=== PATIENT | male | born 1940 | race African-American/Black ===

== ENCOUNTER 2019-01-27 11:17 | Emergency (ER) | payer MEDICARE, OTHER ==
[~2019-01-27] VITALS: Ht 182.9 cm; Wt 74.8 kg
--- OUTSIDE RECORDS SUMMARY | 2019-01-27 11:19 | XMS REPORT | Clinical Summary ---
Author Author PAYAM [facility] Address Unknown Phone Unavailable Care Team Providers Care Split Leather Mosser Name Role Phone Jim Daigle PCP Unavailable Allergies Comments Active Allergy Reactions Severity Noted Date Unknown Penicillins Other (See High 01/14/2015 Comments) Medications End Date Status Medication Sig Dispensed Refills Start Date Active silodosin 8 mg Cap Take by 0 mouth. Active potassium chloride Take 10 mEq 0 (KLOR-CON) 10 MEQ CR by mouth tablet daily. Active lisinopril Take 20 mg by 0 (PRINIVIL,ZESTRIL) 20 MG mouth daily. tablet Active furosemide (LASIX) 40 MG Take 40 mg by 0 tablet mouth 2 (two) times daily. Active benzonatate (TESSALON) Take 200 mg 0 200 MG capsule by mouth 3 (three) times daily as needed for Cough. Active ipratropium (ATROVENT) Take 500 mcg 0 0.02 % nebulizer solution by nebulization 4 (four) times daily. Active Problems Problem Noted Date CAD (coronary artery disease) 01/20/2015 Social History Date Tobacco Use Types Packs/Day Years Used Never Smoker Smokeless Tobacco: Never Used Alcohol Use Drinks/Week oz/Week Comments No Sex Assigned at Date Recorded Not on file Industry Job Start Date Occupation Not on file Not on file Not on file Travel End Travel History Travel Start No recent travel history available. Last Filed Vital Signs Not on file Plan of Treatment Care Team Description Date Type Specialty Samuel Blair MD [address] [place] [address] [phone] 02/07/2019 Appointment Radiology Implants Device Identifier Shelf Expiration Date Model / Serial / Lot Implanted Type Area Manufactur er 10/06/2015 [id number] / / [id number] Angio-Seal Vip [facility] [employer] Implanted: Qty: 1 on 01/20/2015 [employer] Results Not on fileafter 01/26/2018 Insurance Payer Benefit Subscriber ID Type Phone Address Plan / Group MEDICARE MEDICARE A xxxxxxxxxx Medicare B AETNA - MGD CARE AETNA xxxxxxxxxx Comm INDEMNITY NON CONTR Advance Directives For more information, please contact: Formerly [facility] [address] [place] [address] Date Inactivated Comments Code Status Date Activated 01/20/2015 9:26 PM Full Code 01/20/2015 10:24 AM This code status was determined by: Patient
[2019-01-27] MEDS ORDERED: LASIX40 MG PO (12:35)
[2019-01-27] MEDS ORDERED: POTASSIUM CHLO10 ME1 PO (12:36)
[2019-01-27] MEDS ORDERED: MIDODRINE HCL2.5 MG PO (12:36)
[2019-01-27] MEDS ORDERED: ALLOPURINOL100 MG PO (12:38)
[2019-01-27] MEDS ORDERED: METOLAZONE5 MG PO (12:38)
[2019-01-27] MEDS ORDERED: FLOMAX0.4 MG PO (12:39)
[2019-01-27 13:08] VITALS: BP 107/87
== END 2019-01-27 13:10 | disposition home or self-care (01) ==
LOC: FSED 11:17
DX: I87.1 Compression of vein (principal); I87.2 Venous insufficiency (chronic) (peripheral); I50.22 Chronic systolic (congestive) heart failure; R60.9 Edema, unspecified
CPT/HCPCS: 99283

== ENCOUNTER 2019-04-05 21:38 | Inpatient (IN) | payer MEDICARE, OTHER ==
[~2019-04-05] VITALS: Ht 182.9 cm; Wt 85.1 kg
[~2019-04-05 21:38] MED LIST: ALLOPURINOL100 MG PO; FLOMAX0.4 MG PO; LASIX40 MG PO; METOLAZONE5 MG PO; MIDODRINE HCL2.5 MG PO; POTASSIUM CHLO10 ME1 PO
--- OUTSIDE RECORDS SUMMARY | 2019-04-05 21:41 | XMS REPORT | Clinical Summary ---
Author Author PAYAM [facility] Address Unknown Phone Unavailable Care Team Providers Care Ferry Terminal Agent Name Role Phone Jim Daigle PCP Unavailable [...] Noted Date CAD (coronary artery disease) 01/20/2015 Encounters Care Team Description Date Type Specialty Samuel Blair MD Abnormal echocardiogram; Primary cardiomyopathy (HCC) 02/07/2019 Hospital Radiology Encounter Samuel Blair MD Abnormal echocardiogram (Primary Dx); Primary cardiomyopathy (HCC) 01/30/2019 Outside Orders Central Scheduling after 04/04/2018 Social History Date Tobacco Use Types Packs/Day [...] Signs Not on file Plan of Treatment Not on file Implants Device Identifier Shelf Expiration Date Model / Serial / Lot Implanted Type Area [facility] 10/06/2015 [id number] / / [id number] Angio-Seal Vip [facility] [employer] Implanted: Qty: 1 on 01/20/2015 [employer] Procedures Comments Procedure Name Priority Date/Time Associated Diagnosis MR CARDIAC WITHOUT Routine 02/07/2019 CONTRAST 3:20 PM CDT POCT-CREATININE Routine 02/07/2019 2:07 PM CDT after 04/04/2018 Results * MR cardiac without IV contrast (02/07/2019 3:20 PM CDT) Specimen Narrative Performed At FINAL REPORT [facility] Cardiac MRI without contrast, Dated 07 February 2019 INDICATION: This is a 78 year-old male with abnormal echocardiography presents for assessment, concern for cardiac amyloidosis. This study is performed in order for further tissue characterization TECHNIQUE: Hermann 3 Sepideh INGENIA MRI scanner. Morphologic and dynamic cine imaging were performed in multiple projections without contrast administration.Finally, flow quantification sequences were performed to determine the degree of valvular dysfunction. Note, serum creatinine is greater than 2, and therefore gadolinium was not administered. Please refer to the contrast sheet scanned in the EPIC system for the amount and route of contrast given. Scanning blood pressure was 89/64. Patient weighs 180 pounds, with height of 72 inches. FINDINGS: The chest wall and mediastinum appears unremarkable. Trace pericardial effusion is identified. The central branch is normal in calibre. There is moderate left pleural effusion and small right pleural effusion identified. The cardiac chambers demonstrate normal atrioventricular and ventriculoarterial concordance, and systemic and pulmonary venous return.The thoracic aorta is normal in course, caliber, and contour. There is no evidence of acute aortic pathology, such as dissection, intramural hematoma, or contained rupture. The left ventricle is normal in size with moderate systolic dysfunction. There is left ventricular hypertrophy identified, for example, the basal anterior wall measured up to 15 mm in thickness and the mid septum measure up to 16 mm in thickness. Quantitative values are as follows: ZEE=884 cc; ESV=72 cc; stroke volume=41 cc; and ejection fraction=36 %.Calculated absolute cardiac output=2.9 liters/min.Absolute left ventricular mass= 148 grams. The right ventricle is normal The right ventricle is normal in size with moderately severe systolic dysfunction. Quantitative values are as follows: QZU=259 cc; ESV= 97 cc; stroke volume=33 cc; and ejection fraction=25%. Gadolinium was not administered due to increased serum creatinine. T1 measurement was made using myocardial T1 mapping. Average myocardial septal T1 is approximately 1330 ms that is increased. In the setting left ventricular hypertrophy, this finding could suggest underlying cardiac amyloidosis. Ventricular thrombus is not present. Mitral regurgitant fraction is approximately 20%. The tricuspid valve function appears grossly unremarkable. In the four-chamber cine imaging, left and right atrial prominence is noted. CONCLUSIONS: 1.The left ventricle is normal in size and left ventricular hypertrophy is identified with myocardial thickness up to 16mm. This overall moderate systolic dysfunction globally. Quantitative left ventricular functional values are as described above. Gadolinium was not administered, due to increased renal function. However, in T1 imaging, the average myocardial T1 is over 1300 ms that is increased even in 3 Sepideh imaging. With the finding of left ventricular hypertrophy, reduced systolic function, biatrial enlargement, cardiac amyloidosis should be considered as the top differential diagnosis. Please correlate clinically. 2.The right ventricle is normal in size, there is also moderately severe systolic dysfunction. Quantitative right ventricular functional values as described above. 3. Bilateral pleural effusion left greater than right. Signed: Eron Talavera MD Report Verified Date/Time:02/07/2019 18:40:39 Reading Location: [place] [address] Cardiology MRI Procedure Note Interface, External Ris In - 02/07/2019 6:42 PM CDT FINAL REPORT Cardiac MRI without contrast, Dated 07 February 2019 INDICATION: This is a 78 year-old male with abnormal echocardiography presents for assessment, concern for cardiac amyloidosis. This study is performed in order for further tissue characterization TECHNIQUE: Hermann 3 Sepideh INGENIA MRI scanner. Morphologic and dynamic cine imaging were performed in multiple projections without contrast administration. Finally, flow quantification sequences were performed to determine the degree of valvular dysfunction. Note, serum creatinine is greater than 2, and therefore gadolinium was not administered. Please refer to the contrast sheet scanned in the EPIC system for the amount and route of contrast given. Scanning blood pressure was 89/64. Patient weighs 180 pounds, with height of 72 inches. FINDINGS: The chest wall and mediastinum appears unremarkable. Trace pericardial effusion is identified. The central branch is normal in calibre. There is moderate left pleural effusion and small right pleural effusion identified. The cardiac chambers demonstrate normal atrioventricular and ventriculoarterial concordance, and systemic and pulmonary venous return. The thoracic aorta is normal in course, caliber, and contour. There is no evidence of acute aortic pathology, such as dissection, intramural hematoma, or contained rupture. The left ventricle is normal in size with moderate systolic dysfunction. There is left ventricular hypertrophy identified, for example, the basal anterior wall measured up to 15 mm in thickness and the mid septum measure up to 16 mm in thickness. Quantitative values are as follows: RUT=796 cc; ESV=72 cc; stroke volume=41 cc; and ejection fraction=36 %. Calculated absolute cardiac output=2.9 liters/min. Absolute left ventricular mass= 148 grams. The right ventricle is normal The right ventricle is normal in size with moderately severe systolic dysfunction. Quantitative values are as follows: STL=970 cc; ESV= 97 cc; stroke volume=33 cc; and ejection fraction=25%. Gadolinium was not administered due to increased serum creatinine. T1 measurement was made using myocardial T1 mapping. Average myocardial septal T1 is approximately 1330 ms that is increased. In the setting left ventricular hypertrophy, this finding could suggest underlying cardiac amyloidosis. Ventricular thrombus is not present. Mitral regurgitant fraction is approximately 20%. The tricuspid valve function appears grossly unremarkable. In the four-chamber cine imaging, left and right atrial prominence is noted. CONCLUSIONS: 1. The left ventricle is normal in size and left ventricular hypertrophy is identified with myocardial thickness up to 16mm. This overall moderate systolic dysfunction globally. Quantitative left ventricular functional values are as described above. Gadolinium was not administered, due to increased renal function. However, in T1 imaging, the average myocardial T1 is over 1300 ms that is increased even in 3 Sepideh imaging. With the finding of left ventricular hypertrophy, reduced systolic function, biatrial enlargement, cardiac amyloidosis should be considered as the top differential diagnosis. Please correlate clinically. 2. The right ventricle is normal in size, there is also moderately severe systolic dysfunction. Quantitative right ventricular functional values as described above. 3. Bilateral pleural effusion left greater than right. Signed: Eron Talavera MD Report Verified Date/Time: 02/07/2019 18:40:39 Reading Location: [facility] B1 P047 Cardiology MRI Performing Organization Address City/[facility] Phone Number GE RIS * POC-Creatinine (02/07/2019 2:07 PM CDT) POC-Creatinine 2.6 (H)Comment: TESTED AT 0.6 - 1.3 mg/dL [facility] [address] [place] [id number] POC-EGFR 29 mL/min/1.73M2 [facility] Specimen Blood Performing Organization Address [facility] Hospitalcode Phone Number [address] [address] [facility] after 04/04/2018 Insurance Payer Benefit Subscriber ID Type Phone Address Plan / Group MEDICARE MEDICARE A xxxxxxxxxxx Medicare B AETNA - MGD CARE AETNA xxxxxxxxxx Comm INDEMNITY NON CONTR Advance Directives For more information, please contact: [address] [address] Date Inactivated Comments Code Status Date Activated 01/20/2015 9:26 PM Full Code 01/20/2015 10:24 AM This code status was determined by: Patient
--- OUTSIDE RECORDS SUMMARY | 2019-04-05 21:41 | XMS REPORT ---
Author Author [facility] Address Unknown Phone Unavailable Care Team Providers Care Rehab Consultant Name Role Phone Pedro MARR Unavailable Unavailable Problems This patient has no known problems. Allergies, Adverse Reactions, Alerts This patient has no known allergies or adverse reactions. Medications This patient has no known medications. Results Test Description Test Time Test Comments Text Results Atomic Results Result Comments MR, CARDIAC WITHOUT CONTRAST 2019-02-07 18:40:00 Reason for Exam:->R93.1 I42.8 FINAL REPORT Cardiac MRI without contrast, Dated [...] creatinine is greater than 2, and therefore g adolinium was not administered. Please refer to the [...] in thickness. Quantitative values are as follows: DXC=787 cc; ESV=72 cc; stroke volume=41 cc; and ejection fraction=36 %. Calculated absolute cardiac output=2.9 liters/min. Absolute left ventricular cbqt=268 grams. The right ventricle is normal The right ventricle is normal in size with moderately severe systolic dysfunction. Quantitative values are as follows: XFI=047 cc; ESV=97 cc; stroke volume=33 cc; and ejection fraction=25%. [...] left greater than right. Signed: Eron Talavera MDReport Verified Date/Time: 02/07/2019 18:40:39 Reading Location: [place] [address] Cardiology MRI -CREATININE 2019-02-07 14:11:00 POC-CREATININE (LESLEE) (test kmdy=[id number]) 2.6 mg/dL 0.6-1.[address] [address] POC-EGFR (LESLEE) (test mxnu=[id number]) 29 mL/min/1.73M2
[2019-04-05] MEDS ORDERED: FUROSEMIDE INJ 10 MG/ML 2 ML VIAL IV STA (22:36)
--- NOTE | 2019-04-05 22:42 | Diagnostic Imaging Report ---
EXAMINATION: CXR 2 VIEW - HOPD INDICATION: 1 week of shortness of breath ^[id number] ^[id number] COMPARISON: None FINDINGS: PA and lateral views TUBES and LINES: None. LUNGS/PLEURA: The lungs are diffusely hyperinflated consistent with COPD. There is subsegmental atelectasis of the lung bases, left lung more so than the right. Underlying foci of pneumonia cannot be excluded. There is blunting of the posterior and lateral costophrenic angles, left greater than right. No consolidation or interstitial edema of the aerated lung. HEART AND MEDIASTINUM: Mild cardiomegaly. The ureter is tortuous with calcifications in the arch. BONES AND SOFT TISSUES: No focal osseous lesions. Soft tissues are unremarkable. UPPER ABDOMEN: No free air under the diaphragm. IMPRESSION: 1. Small bilateral pleural effusions with bibasilar atelectasis. Underlying foci of pneumonia cannot be excluded. 2. Cardiomegaly without evidence of CHF. 3. Pulmonary hyperinflation suggestive COPD. Signed by: Dr. Renaldo Hwang MD on 04/05/2019 10:38 PM
[2019-04-05] MEDS ORDERED: POTASSIUM CHLORIDE 20 MEQ TAB CR PO STA (22:52)
[2019-04-05] MEDS ORDERED: ALBUTEROL/IPRATROPIUM 3 ML NEB NEB STA (22:52)
--- OUTSIDE RECORDS SUMMARY | 2019-04-05 23:27 | XMS REPORT | Clinical Summary ---
Author Author PAYAM [facility] Address Unknown Phone Unavailable Care Team Providers Care Boring Machine Operator Name Role Phone Jim Daigle PCP Unavailable [...] / Serial / Lot Implanted Type Area [facility] 10/06/2015 [id number] / / [id number] Angio-Seal Vip [facility] Implanted: Qty: 1 on 01/20/2015 [employer] Procedures Comments Procedure Name Priority Date/Time Associated Diagnosis MR CARDIAC WITHOUT Routine 02/07/2019 CONTRAST 3:20 PM CDT POCT-CREATININE Routine 02/07/2019 2:07 PM CDT after 04/04/2018 Results * MR cardiac without IV contrast (02/07/2019 3:20 PM CDT) Specimen Narrative Performed At FINAL REPORT [facility] Cardiac MRI without contrast, Dated 07 February [...] in thickness. Quantitative values are as follows: ARH=719 cc; ESV=72 cc; stroke volume=41 cc; and ejection fraction=36 %.Calculated absolute cardiac output=2.9 liters/min.Absolute left ventricular mass= 148 grams. The right ventricle is normal The right ventricle is normal in size with moderately severe systolic dysfunction. Quantitative values are as follows: OQC=969 cc; ESV= 97 cc; stroke volume=33 cc; [...] MD Report Verified Date/Time:02/07/2019 18:40:39 Reading Location: [place] [address] Cardiology MRI Procedure Note Interface, External Ris [...] in thickness. Quantitative values are as follows: AFZ=639 cc; ESV=72 cc; stroke volume=41 cc; and ejection fraction=36 %. Calculated absolute cardiac output=2.9 liters/min. Absolute left ventricular mass= 148 grams. The right ventricle is normal The right ventricle is normal in size with moderately severe systolic dysfunction. Quantitative values are as follows: TFX=640 cc; ESV= 97 cc; stroke volume=33 cc; [...] Report Verified Date/Time: 02/07/2019 18:40:39 Reading Location: [facility] B1 P047 Cardiology MRI Performing Organization Address City/[facility] Phone Number GE RIS * POC-Creatinine (02/07/2019 2:07 PM CDT) POC-Creatinine 2.6 (H)Comment: TESTED AT 0.6 - 1.3 mg/dL [facility] [address] [place] [id number] POC-EGFR 29 mL/min/1.73M2 [facility] Specimen Blood Performing Organization Address [facility] Centercode Phone Number [address] [address] [facility] after 04/04/2018 Insurance Payer Benefit Subscriber ID Type Phone Address Plan / Group MEDICARE MEDICARE A xxxxxxxxxxx Medicare B AETNA - MGD CARE AETNA xxxxxxxxxx Comm INDEMNITY NON CONTR Advance Directives For more information, please contact: [address] [address] Date Inactivated Comments Code Status Date Activated 01/20/2015 9:26 PM Full Code 01/20/2015 10:24 AM This code status was determined by: Patient
[2019-04-05] MEDS ORDERED: ASPIRIN 81 MG CHEW TAB PO ONE (23:30)
[2019-04-05] MEDS ORDERED: SODIUM CHLORIDE FLUSH 10 ML SYR INJ PRN (23:30)
[2019-04-06] VITALS (10 sets, daily range): BP systolic 85–111; BP diastolic 58–74
[2019-04-06] MEDS: ALBUTEROL/IPRATROPIUM 3 ML NEB NEB SCH ×4 (02:40→19:30)
[2019-04-06] MEDS ORDERED: FUROSEMIDE INJ 10 MG/ML 2 ML VIAL IV ONE (03:00)
[2019-04-06] MEDS ORDERED: SACUBITRIL PO (03:27)
[2019-04-06] MEDS ORDERED: DIOVAN80 MG PO (03:27)
[2019-04-06 08:09] LABS: BASOPHILS # (AUTO) 0.1 (0.0-0.1); BASOPHILS % 1.8 % (0.0-1.0); EOSINOPHILS # (AUTO) 0.2 (0.0-0.4); EOSINOPHILS % 4.1 % (0.0-6.0); HEMATOCRIT 35.6 % (38.2-49.6); HEMOGLOBIN 13.3 g/dL (14.0-18.0); LYMPHOCYTES % 24.7 % (18.0-39.1); MEAN CORPUSCULAR HEMOGLOBIN 32.8 pg (28-32); MEAN CORPUSCULAR HGB CONC 37.4 g/dL (31-35); MEAN CORPUSCULAR VOLUME 87.7 fL (81-99); MONOCYTES # (AUTO) 0.7 (0.2-0.8); NEUTROPHILS % 50.1 % (38.7-80.0); PLATELET COUNT 171 x10e3/uL (140-360); RED BLOOD COUNT 4.06 x10e6/uL (4.3-5.7); RED CELL DISTRIBUTION WIDTH 14.5 % (11.7-14.4)
[2019-04-06 08:26] LABS: ANION GAP 11.4 mmol/L (8-16); CALCIUM 9.1 mg/dL (8.4-10.2); CREATININE, SERUM 2.2 mg/dL (0.72-1.25); POTASSIUM 3.4 mmol/L (3.5-5.1)
[2019-04-06 08:36] LABS: CREATINE KINASE MB 1.8 ng/mL (0-5.0)
[2019-04-06] MEDS: ASPIRIN 81 MG ENTERIC COATED PO SCH (09:25)
[2019-04-06] MEDS: FUROSEMIDE INJ 10 MG/ML 4 ML VIAL IV SCH (09:25)
[2019-04-06] MEDS: POTASSIUM CHLORIDE 10MEQ EA PO SCH (09:26)
[2019-04-06] MEDS: VALSARTAN 80 MG TAB PO SCH ×2 (09:26→17:00)
[2019-04-06] MEDS: MIDODRINE 2.5 MG TAB PO SCH (09:26)
--- NOTE | 2019-04-06 16:32 | NUR ---
Nutrition Screen Note RD Recommendation for Physician: -Continue current diet as ordered Plan of Care: RD following, monitoring for tolerance and adequacy, diet education Nutrition reason for involvement: Diagnosis Primary Diagnose(s): CHF PMH: no H&P in chart Ht: 72in Wt: 189.06lb BMI: 25.6kg/m2 IBW: 178lb RD Assessment: (04/06) Chart reviewed. Labs and meds reviewed. 78yo M, who was admitted for CHF with BLE edema. Currently on IV lasix and nebulizer. Visited pt in the room. Pt reported good appetite. Pt denied any nausea or vomiting. Pt denied any chewing or swallowing difficulty. Unknown weight loss history due to fluids retention. Education handouts on heart healthy diet were provided. Will continue to monitor and follow. Current Diet: cardiac diet Malnutrition Evaluation (04/06) The patient does not meet criteria for a specified degree of malnutrition at this time. Will re-evaluate at follow-up as appropriate. Diet Education Needs Assessment: Diet education indicated, pt and were agreeable with plan. Learner(s): pt and Time spent: 25minutes Barriers: No barriers identified. Cultural/Language Modifications: No cultural/language modifications noted. Pt and speak Indonesian. Readiness: Pt eager to learn. Method: Handouts, explanation Topics: Heart failure nutrition therapy sodium, fluids, weight Understanding/Compliance: Expect good understanding/compliance from pt. Will benefit from reinforcement. All questions have been answered. Nutrition Care Level: low Signed: Paitto Cheng, MS, RD, LD
--- NOTE | 2019-04-06 19:26 | Consultation ---
DATE OF CONSULTATION: 04/06/2019 Pulmonary Consultation The patient of Dr. Sabillon, Dr. Suarez, Dr. Choe, and Dr. Tyler. HISTORY OF PRESENT ILLNESS: Charming, but unfortunate 78-year-old gentleman with history of congestive heart failure diagnosed four years ago. History of two silent MIs. Fluid drained approximately two years ago from his chest. Hypertension, hyperlipidemia, recently had a bone marrow biopsy, presumably for evaluation of anemia of chronic disease. ALLERGIES: ALLERGIC TO PENICILLIN. MEDICATIONS: Include: 1. Entresto. 2. Metolazone. 3. Lasix. 4. Midodrine. 5. Potassium. 6. Flomax. 7. He uses oxygen at night for hypoxia. PAST MEDICAL AND SURGICAL HISTORY: Carpal tunnel surgery. He has had chronic edema of the lower extremities. 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 Born in [place], [place]. FAMILY HISTORY: Positive for strokes, hypertension, and coronary artery disease. PHYSICAL EXAMINATION: GENERAL: He is a well-developed black male, appears chronically ill, surrounded by his brother and . VITAL SIGNS: Temperature 95, pulse 76, respirations 20, blood pressure 93/80. HEAD: Normocephalic, atraumatic. EYES: Extraocular movements intact. LUNGS: Diminished breath sounds in both bases. HEART: Regular rhythm. ABDOMEN: Nontender. EXTREMITIES: Edematous. Keloids are noted in the legs. IMPRESSION: Cardiomyopathy and moderate pleural effusion. PLAN: Therapy of heart failure, supplemental oxygen. There is no history of sleep apnea. Monitor chest x-ray. Continue supportive care. Thank you for this kind referral. MD KIMBERLEE Argueta/MODL /[id number]
[2019-04-06] MEDS: TAMSULOSIN HCL 0.4 MG CAP PO SCH (21:15)
[2019-04-07] VITALS (8 sets, daily range): BP systolic 80–112; BP diastolic 64–98
--- NOTE | 2019-04-07 00:27 | Consultation ---
DATE OF CONSULTATION: 04/06/2019 Cardiology Consultation HISTORY OF PRESENT ILLNESS: This is a 78-year-old man with a history of known chronic systolic congestive heart failure, who recently underwent a bone marrow biopsy. The patient follows with [facility]. Based on the results here at our facility, amyloidosis was suspected, and on further questioning of the patient, his scalehouse attendant also suspects cardiac amyloidosis. He is maintained on Entresto, Lasix, and metolazone. He also is on midodrine for blood pressure support. The patient presented with progressively worsening shortness of breath, dyspnea on exertion, fluid retention, abdominal distention, and lower extremity swelling. REVIEW OF SYSTEMS: A 12-point review of system was conducted, is negative otherwise as stated above in the HPI. PAST MEDICAL HISTORY: As stated above in the HPI. PAST SURGICAL HISTORY: Bone marrow biopsy. PAST FAMILY HISTORY: No premature coronary artery disease or sudden cardiac . SOCIAL HISTORY: No illicit drug, alcohol, or tobacco use. ALLERGIES: NO KNOWN DRUG ALLERGIES. MEDICATIONS: See medications reconciliation form. PHYSICAL EXAMINATION: VITAL SIGNS: Temperature is 95.5, heart rate is 111, respirations are 18, blood pressure is 91/66, and oxygen saturation 100% on 2 L nasal cannula. GENERAL: He is an elderly male lying comfortably in bed. HEAD: Normocephalic, atraumatic. EYES: Extraocular muscles are intact. Conjunctivae are clear. NECK: There is significant jugular venous distention present. CARDIOVASCULAR: He has regular rate and rhythm with episodes of tachycardia, a systolic murmur at the left sternal border. LUNGS: Diminished breath sounds at bases. ABDOMEN: Distended, mildly tense, nontender. EXTREMITIES: Chronic lymphedema changes and significant 3+ pitting edema. NEUROLOGIC: No focal deficits noted. LABORATORY DATA: Reviewed. White blood cell count 3.8, hemoglobin 13, creatinine 2.2, and potassium 3.4. A 12-lead electrocardiogram showed normal sinus rhythm, low voltage. A 2D echocardiogram showed severe left ventricular systolic function with an estimated ejection fraction of 25% to 30% with severe left ventricular hypertrophy, severe right ventricular systolic dysfunction with moderate tricuspid regurgitation, mild aortic regurgitation, and trace pericardial effusion with a left pleural effusion. IMPRESSION: 1. Cardiac amyloidosis. 2. Acute on chronic systolic congestive heart failure. 3. Chronic kidney disease. 4. Hypokalemia. 5. Leukopenia. 6. Pleural effusions. RECOMMENDATIONS: This is a difficult situation, given the fact that he has episodes of hypotension. Optimal medical therapy for his heart failure is not well tolerated at times due to severe hypotension. Continue midodrine as needed for blood pressure support. The patient remained significantly volume overloaded, so we will increase Lasix to 40 mg IV every 12 hours with close monitoring of his urinary outputs and vital signs. Can add back metolazone for increased diuresis as well. We will hold off on re-initiation of Entresto at this point in time. The patient already received a bone marrow biopsy and his pending results and he is to follow up in the [facility]'s system with the scalehouse attendant and mounter automatic. DO BLAS Senior/MODL /[id number]
[2019-04-07] MEDS: ALBUTEROL/IPRATROPIUM 3 ML NEB NEB SCH ×4 (01:00→19:40)
[2019-04-07 05:24] LABS: BASOPHILS % 0.9 % (0.0-1.0); EOSINOPHILS # (AUTO) 0.2 (0.0-0.4); EOSINOPHILS % 3.5 % (0.0-6.0); HEMATOCRIT 38.4 % (38.2-49.6); HEMOGLOBIN 14.1 g/dL (14.0-18.0); LYMPHOCYTES # (AUTO) 0.9 (1.0-3.2); LYMPHOCYTES % 20.2 % (18.0-39.1); MEAN CORPUSCULAR HEMOGLOBIN 32.5 pg (28-32); MEAN CORPUSCULAR HGB CONC 36.7 g/dL (31-35); MEAN CORPUSCULAR VOLUME 88.5 fL (81-99); MONOCYTES # (AUTO) 0.8 (0.2-0.8); MONOCYTES % 16.5 % (4.4-11.3); NEUTROPHILS # (AUTO) 2.7 (2.1-6.9); NEUTROPHILS % 58.7 % (38.7-80.0); PLATELET COUNT 175 x10e3/uL (140-360); RED BLOOD COUNT 4.34 x10e6/uL (4.3-5.7); RED CELL DISTRIBUTION WIDTH 14.3 % (11.7-14.4)
[2019-04-07 05:45] LABS: ANION GAP 14.4 mmol/L (8-16); CALCIUM 9.3 mg/dL (8.4-10.2); CREATININE, SERUM 2.1 mg/dL (0.72-1.25); POTASSIUM 3.4 mmol/L (3.5-5.1)
[2019-04-07] MEDS: VALSARTAN 80 MG TAB PO SCH ×2 (09:00→16:52)
[2019-04-07] MEDS: POTASSIUM CHLORIDE 10MEQ EA PO SCH (09:15)
[2019-04-07] MEDS: FUROSEMIDE INJ 10 MG/ML 4 ML VIAL IV SCH (09:15)
[2019-04-07] MEDS: ASPIRIN 81 MG ENTERIC COATED PO SCH (09:15)
[2019-04-07] MEDS: MIDODRINE 2.5 MG TAB PO SCH (09:16)
--- NOTE | 2019-04-07 10:52 | Diagnostic Imaging Report ---
EXAMINATION: CHEST 2 VIEWS INDICATION: CHF. Follow-up. COMPARISON: 04/05/2019. FINDINGS: TUBES and LINES: None. LUNGS: Bilateral lower lobe platelike atelectasis, left greater than right. PLEURA: Bilateral trace pleural effusion left greater than wide.. No pneumothorax. HEART AND MEDIASTINUM: The cardiomediastinal silhouette is stable. BONES AND SOFT TISSUES: No acute osseous lesion. Soft tissues are unremarkable. UPPER ABDOMEN: No free air under the diaphragm. IMPRESSION: No significant interval change. Bilateral lower lobe platelike atelectasis bilateral trace pleural effusions. Signed by: Dr. Justen Early M.D. on 04/07/2019 10:49 AM
--- NOTE | 2019-04-07 17:40 | NUR ---
patient noted with 7runs of VT, patient denies pain, SOB, or dizziness. lying in bed with HOB up 45 degress and visitors at bedside. call light within reach.
--- NOTE | 2019-04-07 17:49 | NUR ---
in facility notified, no new orders at this time.
[2019-04-07] MEDS: TAMSULOSIN HCL 0.4 MG CAP PO SCH (20:17)
--- NOTE | 2019-04-07 21:46 | Progress Note ---
DATE: 04/07/2019 Cardiology Progress Note SUBJECTIVE: No major events overnight. OBJECTIVE: VITAL SIGNS: Temperature afebrile, pulse 110, respiratory rate 20, blood pressure 105/72, and saturating 95% on 2 L nasal cannula. GENERAL: Elderly Afro-[place]ian man, lying comfortably in bed. No acute distress. CARDIOVASCULAR: Regular rate and rhythm. Tachycardic. Systolic murmur at left sternal border. LUNGS: Diminished breath sounds in bilateral bases. ABDOMEN: Distended and nontender. EXTREMITIES: Chronic lymphedema changes, 3 to 4+ pitting edema. NEURO AND PSYCH: Alert and oriented. INPATIENT MEDICATIONS: Reviewed. LABORATORY DATA: Reviewed. TELEMETRY DATA: Reviewed. Short run of nonsustained VT about 8 beats. Echocardiogram showed severe LV systolic dysfunction with estimated EF of 25% to 30% with severe LVH, severe right ventricular systolic dysfunction with moderate tricuspid regurgitation, mild aortic regurgitation, and trace pericardial effusion. ASSESSMENT AND PLAN: 1. Cardiac amyloidosis. 2. 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 3. Chronic kidney disease. 4. Pleural effusions. RECOMMENDATIONS: This is a difficult situation, prognosis is poor given biventricular failure and cardiac amyloidosis. We will attempt to diurese him as the kidneys tolerate. Discontinue valsartan. Given hypotension, we will try to discontinue midodrine if tolerated as this will lead to more fluid retention. Continue IV diuretics. We will continue to monitor renal function closely. Replete potassium as tolerated. Thank you for this consult. We will continue to follow. MD MAN Schultz/LYNDA /[id number]
[2019-04-08] VITALS (10 sets, daily range): BP systolic 85–105; BP diastolic 40–76
[2019-04-08] MEDS: ALBUTEROL/IPRATROPIUM 3 ML NEB NEB SCH ×4 (01:02→19:30)
[2019-04-08] MEDS: ASPIRIN 81 MG ENTERIC COATED PO SCH (08:30)
[2019-04-08] MEDS: FUROSEMIDE INJ 10 MG/ML 4 ML VIAL IV SCH (08:30)
[2019-04-08] MEDS: MIDODRINE 2.5 MG TAB PO SCH (08:30)
[2019-04-08] MEDS: POTASSIUM CHLORIDE 10MEQ EA PO SCH (08:31)
--- NOTE | 2019-04-08 17:59 | Progress Note ---
DATE: 04/08/2019 Cardiology Progress Note SUBJECTIVE: No major events overnight. No chest pain or shortness of breath. OBJECTIVE: VITAL SIGNS: Temperature 97.8, pulse 71, respiratory rate 18, blood pressure 98/76, and saturating 95% on 2 L nasal cannula. GENERAL: Elderly man, sitting up and eating dinner. No acute distress. CARDIOVASCULAR: Irregular rate and rhythm. Tachycardic. Systolic murmur at left lower sternal border. LUNGS: Diminished breath sounds at bilateral bases. ABDOMEN: Distended, but nontender. EXTREMITIES: 4+ pitting edema. NEURO AND PSYCH: Alert and oriented to person, place, and time. Normal affect. INPATIENT MEDICATIONS: Reviewed. LABORATORY DATA: Reviewed. TELEMETRY DATA: Reviewed, shows mix of atrial fibrillation and sinus tachycardia. ASSESSMENT AND PLAN: 1. Cardiac amyloidosis. 2. 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 3. Chronic kidney disease. 4. Pleural effusions. RECOMMENDATIONS: Blood pressure is borderline. Midodrine is stopped at this point. He has runs of AFib with RVR. Rate control is difficult as the patient's blood pressure will not tolerate beta-blockers. Renal function is poor. If he continues to have uncontrolled atrial fibrillation, we will consider starting amiodarone. Thank you for this consult. We will continue to follow. MD MAN Schultz/LYNDA /[id number]
[2019-04-08] MEDS: TAMSULOSIN HCL 0.4 MG CAP PO SCH (21:23)
--- NOTE | 2019-04-08 21:23 | NUR ---
Patient transfered to 107 via bed. Report given to Mily KWON. Patient AAOx3 and no resp distress. Denies pain at this time. All belongings with patient. No complaints or concern.
--- NOTE | 2019-04-08 21:30 | NUR ---
PT ARRIVED ON UNIT VIA BED, REPORT RECEIVED, ORIENTED PT TO ROOM, NO DISTRESS NOTED, VS STABLE, CALL LIGHT IN REACH
[2019-04-09] VITALS: BP 110/68
[2019-04-09] MEDS: ALBUTEROL/IPRATROPIUM 3 ML NEB NEB SCH ×4 (01:00→19:45)
--- NOTE | 2019-04-09 06:27 | NUR ---
PT IN BED, NO DISTRESS NOTED, CALL LIGHT IN REACH, VS STABLE
--- NOTE | 2019-04-09 07:00 | NUR ---
BEDSIDE ROUNDS COMPLETE NO DISTRESS NOTED, DENIES PAIN AT THIS TIME, UPDATED ON POC VOICED UNDERSTANDING, PT RECEIVED IN STABLE CONDITION CALL LIGHT IN REACH WILL CONTINUE OT MONITOR
[2019-04-09 08:46] VITALS: BP 102/75
[2019-04-09] MEDS: POTASSIUM CHLORIDE 10MEQ EA PO SCH (09:00)
[2019-04-09] MEDS ORDERED: POTASSIUM CHLORIDE 20 MEQ TAB CR PO PRN (09:30)
[2019-04-09] MEDS: FUROSEMIDE INJ 10 MG/ML 4 ML VIAL IV SCH (10:29)
[2019-04-09] MEDS: ASPIRIN 81 MG ENTERIC COATED PO SCH (10:29)
[2019-04-09 10:30] VITALS: BP 102/75
[2019-04-09] MEDS: MIDODRINE 2.5 MG TAB PO SCH (10:30)
--- NOTE | 2019-04-09 10:36 | NUR ---
IMM EXPLAINED, SIGNED BY PT AND PLACED ON CHART COPY TO PT IN CARE TRANSITIONS FOLDER
--- NOTE | 2019-04-09 11:30 | NUR ---
SPOKE WITH DR Vivian PETERSON RE: TELEMETRY RUN OF 5 BEATS OF V TACH, NO NEW ORDERS AT THIS TIME.
[2019-04-09 12:50] VITALS: BP 95/71
[2019-04-09] MEDS ORDERED: CEPACOL SORE THROAT LOZENGES PO PRN (14:45)
[2019-04-09 17:05] VITALS: BP 105/79
--- NOTE | 2019-04-09 19:15 | NUR ---
Rounding done & report received. Patient is resting in bed, awake & alert. Respirations even & unlabored, no distress noted. NC @ 2L. Tele in place. L FA 18g SL, patent & no infiltration noted. Edema to BLE. Patient denies any issues or needs at this time. Call light within reach, bed set to lowest position & side rails x2 raised.
--- NOTE | 2019-04-09 19:58 | Progress Note ---
DATE: 04/09/2019 Cardiology Progress Note SUBJECTIVE: No major events overnight. OBJECTIVE: VITAL SIGNS: Temperature afebrile, pulse 93, respiratory rate 18, blood pressure 102/75, saturating 96% on 2 L. GENERAL: Elderly man, in no acute distress. CARDIOVASCULAR: Irregular rate and rhythm. Systolic murmur, left lower sternal border. LUNGS: Diminished breath sounds in bilateral bases. ABDOMEN: Distended and nontender. EXTREMITIES: 4+ pitting edema. NEURO AND PSYCH: Alert and oriented to person, place, and time. Normal affect. INPATIENT MEDICATIONS: Reviewed. LABORATORY DATA: Reviewed. TELEMETRY DATA: Reviewed, shows atrial fibrillation with occasional RVR. ASSESSMENT AND PLAN: 1. Cardiac amyloidosis. 2. [id number] biventricular systolic and diastolic congestive heart failure. 3. Chronic kidney disease. 4. Pleural effusions. RECOMMENDATIONS: Continue IV diuretics. Overall doing well. Given poor renal function and anemia and thrombocytopenia, not a good candidate for anticoagulation for his atrial fibrillation. Thank you for this consult. We will continue to follow. MD MAN Schultz/LYNDA /[id number]
[2019-04-09 20:00] VITALS: BP 110/72
[2019-04-09] MEDS: TAMSULOSIN HCL 0.4 MG CAP PO SCH (20:45)
[2019-04-10] VITALS (8 sets, daily range): BP systolic 90–110; BP diastolic 68–77
[2019-04-10] MEDS: ALBUTEROL/IPRATROPIUM 3 ML NEB NEB SCH ×4 (00:50→19:00)
--- NOTE | 2019-04-10 07:00 | NUR ---
BEDSIDE SHIFT REPORT FROM KATLIN KWON. PT DENIES NEEDS AT THIS TIME.
[2019-04-10] MEDS: ASPIRIN 81 MG ENTERIC COATED PO SCH (09:08)
[2019-04-10] MEDS: FUROSEMIDE INJ 10 MG/ML 4 ML VIAL IV SCH (09:08)
[2019-04-10] MEDS: POTASSIUM CHLORIDE 10MEQ EA PO SCH (09:09)
[2019-04-10] MEDS: MIDODRINE 2.5 MG TAB PO SCH (09:10)
--- NOTE | 2019-04-10 11:03 | Progress Note ---
DATE: 04/10/2019 SUBJECTIVE: Mr. Crump is a 78-year-old male with a history of chronic systolic CHF, who was suspected to have amyloidosis. He underwent a bone marrow biopsy last week, we do not have results available yet. He has been on Entresto, Lasix, and metolazone. He came to the emergency room complaining of shortness of breath that was getting worse and lower extremity edema as well as abdominal distention. He has been on IV diuretics. He has since seen by men's garment fitter. PHYSICAL EXAMINATION: GENERAL: Today, he is awake and alert. He is feeling better. VITAL SIGNS: Temperature is 97.8, blood pressure is 102/69, heart rate is 66. HEART: Irregularly irregular. LUNGS: Decreased breath sounds bilaterally. ABDOMEN: Distended and soft. LOWER EXTREMITIES: Bilateral pedal edema with hyperpigmentation of the skin and chronic changes in the skin. The echocardiogram shows left ventricular systolic function around 25-30% with severe left ventricular hypertrophy, severe right ventricular systolic dysfunction. ASSESSMENT AND PLAN: 1. Cardiac amyloidosis. 2. Acute on chronic systolic and diastolic congestive heart failure. 3. Chronic kidney disease, stage 3. 4. Hypokalemia. 5. Bilateral pleural effusions. 6. Lower extremity edema. The plan at the present time, he continue IV diuretics and continue O2 nasal canula. The patient was found to have also some episodes of atrial fibrillation, but due to the anemia and thrombocytopenia he is not a good candidate for anticoagulation. We are going to start him probably one more day and if he is stable, we are going to discharge him tomorrow and let him follow up with his men's garment fitter as an outpatient. All this was discussed with the patient. All questions were answered to satisfaction. MD RINA Small/LYNDA /[id number]
--- NOTE | 2019-04-10 14:58 | Progress Note ---
DATE: 04/10/2019 Cardiology Progress Note SUBJECTIVE: The patient seen and examined, seated at bedside, comfortable. No events. Shortness of breath and swelling mildly improved. OBJECTIVE: VITAL SIGNS: Temperature is 96.2, heart rate is 106, respirations are 20, blood pressure is 90/72, and oxygen saturation is 100% on 2 L nasal cannula. GENERAL: He is an elderly male, seated at bedside, in no apparent distress. CARDIOVASCULAR: Regular rate and rhythm. Systolic murmur at the left sternal border. LUNGS: Diminished breath sounds at bases. ABDOMEN: Soft, nontender, nondistended. EXTREMITIES: Chronic lymphedema changes with significant pitting edema. CARDIOVASCULAR MEDICATIONS: Reviewed. LABORATORY DATA: No laboratory data from today. TELEMETRY: Telemetry monitoring revealed episodes of atrial fibrillation and sinus tachycardia. IMPRESSION: 1. Cardiac amyloidosis. 2. 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 3. Chronic kidney disease. 4. Pleural effusions. RECOMMENDATIONS: Continue IV Lasix for adequate diuresis. The patient is progressing well. The patient is likely not a good candidate for anticoagulation given his anemia, thrombocytopenia. If blood pressure is able to tolerate, start low-dose metoprolol. Eron Fitzpatrick DO BM/MODL /[id number]
--- NOTE | 2019-04-10 17:09 | NUR ---
Pt's home o2 eval completed. Pt qualifies for oxygen. 85% on exertion. Spoke to pt who states he has a concentrator thru [employer] and would like to use the same company. Choice letter signed and placed in chart. Copy placed in pt's transition of care folder. CM called and spoke to Branden with [employer] and informed him of o2 order. Faxed order and clinicals to [phone].
[2019-04-10] MEDS: TAMSULOSIN HCL 0.4 MG CAP PO SCH (20:44)
[2019-04-11] VITALS: BP 97/72
[2019-04-11] MEDS: ALBUTEROL/IPRATROPIUM 3 ML NEB NEB SCH ×3 (00:21→13:00)
[2019-04-11 04:00] VITALS: BP 114/73
--- NOTE | 2019-04-11 05:06 | Progress Note ---
DATE: 04/09/2019 SUBJECTIVE: Mr. Crump is a 78-year-old man with a known history of systolic CHF, apparently with history of amyloidosis was suspected. He has been on Entresto, Lasix, and metolazone. He came to the emergency room complaining of worsening of shortness of breath, dyspnea on exertion, and lower extremity edema. He has been in the hospital. He has had some runs of ventricular tachycardia, AFib with rapid ventricular rate. He is on telemetry. PHYSICAL EXAMINATION: VITAL SIGNS: He is on O2 nasal cannula. Blood pressure is 110/68 and temperature is 95. HEART: Irregularly irregular. LUNGS: Decreased breath sounds bilaterally. ABDOMEN: Distended and soft. EXTREMITIES: Bilateral lower extremity edema. LAB WORK: Potassium is 3.4, creatinine is 2.10, and glucose 105. White count 4.60, hemoglobin is 14.1, and hematocrit is 38.4. Chest x-ray showed small bilateral pleural effusion and cardiomegaly. ASSESSMENT: 1. Kpfqz-kb-qcanbdw systolic congestive heart failure. 2. Lower extremity edema, probably cardiac amyloidosis. 3. Chronic renal failure, stage III. 4. Hypokalemia. 5. Bilateral pleural effusions. PLAN: The plan at present time with this patient is beta-blockers could not be given due to the patient's low blood pressure. Midodrine was stopped because blood pressure was borderline. He has runs of a few rapid ventricular rate. Renal function is poor. We will now continue to monitor his heart rate and he may need amiodarone for heart rate control. All this was discussed with the patient. All questions were answered to satisfaction. MD RINA Small/LYNDA /[id number]
--- NOTE | 2019-04-11 07:28 | NUR ---
Rcvd patient in report this am. Patient is asleep in bed at this time. NO s/s of distress noted
--- NOTE | 2019-04-11 08:37 | Discharge Summary ---
HOSPITAL COURSE: Mr. Crump is a 78-year-old man with a known history of systolic and diastolic CHF with probably cardiac amyloidosis, who has been on Entresto, Lasix and metolazone, came to the emergency room with worsening of shortness of breath and lower extremity edema. He also was found to have AFib with rapid ventricular rate, but the patient is not a candidate for anticoagulation. PHYSICAL EXAMINATION: GENERAL: At present time, he is on O2 nasal cannula. He is doing fine. Temperature 95.3, blood pressure is 114/73. HEART: Irregularly irregular. LUNGS: Bilateral breath sounds are decreased in the bases. ABDOMEN: Soft. EXTREMITIES: Lower extremity bilateral edema getting better, has some chronic skin color changes in that area. RADIOGRAPHS: Chest x-ray showed bilateral pleural effusion and cardiomegaly. DISCHARGE DIAGNOSES: 1. Acute on chronic systolic and diastolic congestive heart failure. 2. Lower extremity edema. 3. Cardiac amyloidosis. 4. Chronic kidney disease stage 3. 5. Hypovolemia. 6. Bilateral pleural effusion. PLAN: At present time is continue to monitor blood pressure. If okay with [facility], maybe he will need a low-dose of beta blockers, but the problem is his blood pressure has been running very low, also the patient is not a candidate for anticoagulation. So, he is going to need probably O2 at home. We are going to try to send that if necessary. If he meets the criteria and then if it is okay with sound truck operator, he is going to be discharged home. His sound truck operator is downtown, so he is to follow with him upon discharge. He is to call me or come back to the emergency room if any recurrent problem. All this was discussed with the patient. All questions were answered to satisfaction. MD RINA Small/LYNDA /[id number]
[2019-04-11] MEDS: ASPIRIN 81 MG ENTERIC COATED PO SCH (08:40)
[2019-04-11] MEDS: MIDODRINE 2.5 MG TAB PO SCH (08:40)
[2019-04-11] MEDS: POTASSIUM CHLORIDE 10MEQ EA PO SCH (08:40)
[2019-04-11] MEDS: FUROSEMIDE INJ 10 MG/ML 4 ML VIAL IV SCH (08:40)
[2019-04-11 08:45] VITALS: BP 115/87
[2019-04-11 10:19] VITALS: BP 115/87
--- NOTE | 2019-04-11 11:50 | NUR ---
IMM EXPLAINED TO PT, SIGNED BY PT AND PLACED IN CHART COPY TO PT IN CARE TRANSITIONS FOLDER
--- NOTE | 2019-04-11 12:15 | NUR ---
Spoke with rep at [facility]. She states that they have everything they need for oxygen order for pt. Portables will be delivered today.
[2019-04-11 13:19] VITALS: BP 102/68
--- NOTE | 2019-04-11 13:20 | NUR ---
Patient is AAOx3. Patient lung mccallum diminished to auscultation. Bowel sounds present x4. 4+ edema noted to bilateral lower extremities. Some shortness of breath noted on exertion. O2 at 2L NC. Patient pending home O2 to be delivered.
--- NOTE | 2019-04-11 16:46 | NUR ---
Portable oxygen has been delivered to bedside.
[2019-04-11 16:56] VITALS: BP 102/79
--- NOTE | 2019-04-11 17:15 | NUR ---
Removed IV from left AC. Pressure dressing applied
--- NOTE | 2019-04-11 17:22 | NUR ---
Patient discharged from facility to home. Patient assisted out via wheelchair and staff. Reviewed all discharge paperwork with patient and family, reviewed prescriptions, and follow up appts. Home O2 delivered
--- NOTE | 2019-04-11 18:25 | Progress Note ---
DATE: 04/11/2019 SUBJECTIVE: No major events overnight. Feeling better, pending discharge today. OBJECTIVE: VITAL SIGNS: Temperature afebrile, pulse 82, respiratory rate 18, blood pressure 102/68 saturating 98% on 2 L nasal cannula. GENERAL: Elderly man in no acute distress. CARDIOVASCULAR: Regular rate and rhythm. No murmurs, rubs, or gallops. LUNGS: Diminished breath sounds at bilateral bases. ABDOMEN: Distended, but nontender. EXTREMITIES: 2+ pitting edema. NEURO AND PSYCH: Alert and oriented to person, place, and time. Normal affect. INPATIENT MEDICATIONS: Reviewed. LABORATORY DATA: Reviewed. TELEMETRY DATA: Reviewed. ASSESSMENT AND PLAN: 1. Cardiac amyloidosis. 2. 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 3. Chronic kidney disease. 4. Pleural effusions. RECOMMENDATIONS: The patient is more euvolemic now, resting comfortably, still has edema, but this can be continued with diuresis as an outpatient. Okay to discharge the patient from a cardiovascular standpoint. Follow up with primary fire prevention engineer in one week post discharge. Continue his home Lasix and metolazone as well as potassium at this point. We will discontinue his midodrine and Entresto given hypotension and fluid overload. Thank you for this consult. We will continue to follow. MD MAN Schultz/LYNDA /[id number]
== END 2019-04-11 17:22 | disposition home or self-care (01) | DRG 291 ==
LOC: FSED 21:38 → ERHOLD 23:21 → MED/SURG2 04-06 00:39 → MED/SURG 04-08 21:18
PROVIDERS: ADMIT Internal Medicine; ATTEND Internal Medicine
DX: I13.0 Hypertensive heart and chronic kidney disease with heart failure and stage 1 through stage 4 chronic kidney disease, or unspecified chronic kidney disease (principal); I50.43 Acute on chronic combined systolic (congestive) and diastolic (congestive) heart failure; J96.21 Acute and chronic respiratory failure with hypoxia; E85.4 Organ-limited amyloidosis; Z88.0 Allergy status to penicillin; M10.9 Gout, unspecified; I25.10 Atherosclerotic heart disease of native coronary artery without angina pectoris; E78.5 Hyperlipidemia, unspecified; I43 Cardiomyopathy in diseases classified elsewhere; N18.3 Chronic kidney disease, stage 3 (moderate); I25.2 Old myocardial infarction; Z82.3 Family history of stroke; Z82.49 Family history of ischemic heart disease and other diseases of the circulatory system; E87.6 Hypokalemia; D72.819 Decreased white blood cell count, unspecified; J44.9 Chronic obstructive pulmonary disease, unspecified; D64.9 Anemia, unspecified; D69.6 Thrombocytopenia, unspecified; I48.91 Unspecified atrial fibrillation
CPT/HCPCS: 36415; 71046; 80048; 82550; 82553; 83880; 84484; 85025; 93005; 93306; 94640; 99284; J1940